=== PATIENT | female | born 1970 ===

== ENCOUNTER 2017-08-17 18:22 | Emergency (ER) | payer OTHER ==
[2017-08-17 18:22] VITALS: BMI 30.2
[2017-08-17 18:31] VITALS: BP 116/78; PULSE 72; RESP 20; TEMP 98; O2SAT 98
--- NOTE | 2017-08-17 19:45 | C.PDOC ---
History Of Present Illness 47 year old female presents to the ED for evaluation of worsening fever, dry cough and chest congestion which began 3 days ago. Patient has been taking Motrin at home without significant relief and presents to the ED for further evaluation. She denies chest pain, ear pain, throat pain. Time Seen by Provider: 08/17/17 19:20 Chief Complaint (Nursing): Fever History Per: Patient History/Exam Limitations: no limitations Onset/Duration Of Symptoms: Days (3) Current Symptoms Are (Timing): Still Present Associated Symptoms: Fever, Cough. denies: Sore Throat, Sputum Ear Symptoms: Bilateral: None Additional History Per: Patient Past Medical History Reviewed: Historical Data, Nursing Documentation, Vital Signs Vital Signs: Last Vital Signs Temp 98 F 08/17/17 18:28 Pulse 72 08/17/17 18:28 Resp 20 08/17/17 18:28 BP 116/78 08/17/17 18:28 Pulse Ox 98 08/17/17 19:45 - Medical History PMH: No Chronic Diseases Surgical History: No Surg Hx Family History: States: Unknown Family Hx - Social History Hx Alcohol Use: No Hx Substance Use: No - Immunization History Hx Tetanus Toxoid Vaccination: No Hx Influenza Vaccination: No Hx Pneumococcal Vaccination: No Review Of Systems Constitutional: Positive for: Fever ENT: Positive for: Other (chest congestion ). Negative for: Ear Pain, Throat Pain Respiratory: Positive for: Cough. Negative for: Sputum Physical Exam - Physical Exam Appears: Non-toxic, No Acute Distress Skin: Normal Color, Warm, Dry Head: Atraumatic, Normacephalic Eye(s): bilateral: Normal Inspection Ear(s): Bilateral: Normal Nose: Normal, No Discharge Oral Mucosa: Moist Throat: Normal, No Erythema, No Exudate Neck: Supple Chest: Symmetrical, No Deformity, No Tenderness Cardiovascular: Rhythm Regular, No Murmur Respiratory: Normal Breath Sounds, No Rales, No Rhonchi, No Wheezing Extremity: Normal ROM, Capillary Refill (less than 2 seconds ) Neurological/Psych: Oriented x3, Normal Speech, Normal Cognition Gait: Steady ED Course And Treatment O2 Sat by Pulse Oximetry: 98 (on RA) Pulse Ox Interpretation: Normal Progress Note: Motrin PO administered. On reassessment, patient is resting comfortably, remains afebrile and is showing no signs of distress. Patient is stable for discharge and is advised to follow up with her PMD within 1-2 days for further evaluation and/or return to the ED if symptoms persist or worsen. Reassessment Condition: Improved Disposition Counseled Patient/Family Regarding: Diagnosis, Need For Followup, Rx Given - Disposition Referrals: [facility] [Outside] [facility] [Outside] Disposition: HOME/ ROUTINE Disposition Time: 19:43 Condition: STABLE Additional Instructions: Increase PO fluids Take meds as directed Follow up in clinic Return to ER if worse Prescriptions: Benzonatate [Tessalon Perles] 100 mg PO TID #20 sgl Cetirizine HCl [Zyrtec] 10 mg PO DAILY #20 capsule Ibuprofen [Motrin] 600 mg PO Q6H #20 tab Instructions: Upper Respiratory Infection (ED) Forms: [employer] (Turkmen) Print Language: MALTESE - Clinical Impression Clinical Impression: Upper respiratory infection - PA / EQUIP MAINT ENG / Resident Statement MD/DO has reviewed & agrees with the documentation as recorded. - Scribe Statement The provider has reviewed the documentation as recorded by the Scribe (Haylee Torres) All medical record entries made by the Scribe were at my direction and personally dictated by me. I have reviewed the chart and agree that the record accurately reflects my personal performance of the history, physical exam, medical decision making, and the department course for this patient. I have also personally directed, reviewed, and agree with the discharge instructions and disposition.
== END 2017-08-17 20:00 | disposition home or self-care (01) ==
LOC: C.ER 18:22
DX: J06.9 Acute upper respiratory infection, unspecified (principal)